=== PATIENT | female | born 1945 | race Caucasian/White ===

== ENCOUNTER 2018-03-16 08:54 | Observation (INO) ==
[2018-03-16 10:50] LABS: Baso % (Auto) 0.3 % (0.0-2.0); Eos # (Auto) 0.4 th/mm3 (0.0-0.4); Eos % (Auto) 4.9 % (0.0-4.0); Hematocrit 31.8 % (35.0-46.0); Hemoglobin 10.3 gm/dL (11.6-15.3); Lymph # (Auto) 2.6 th/mm3 (1.0-4.8); Lymph % (Auto) 31.3 % (9.0-44.0); Mean Corpuscular HGB Conc 32.3 % (32.0-36.0); Mean Corpuscular Hemoglobin 27.1 pg (27.0-34.0); Mean Corpuscular Volume 83.8 fL (80.0-100.0); Mean Platelet Volume 10.4 fL (7.0-11.0); Mono # (Auto) 0.5 th/mm3 (0.0-0.9); Mono % (Auto) 6.3 % (0.0-8.0); Neut # (Auto) 4.8 th/mm3 (1.8-7.7); Neut % (Auto) 57.2 % (16.0-70.0); Platelet Count 109 th/mm3 (150-450); Red Cell Distribution Width 15.4 % (11.6-17.2); White Blood Count 8.4 th/mm3 (4.0-11.0)
--- NOTE | 2018-03-16 11:05 | ED ---
HPI General Chief complaint: Recheck/Abnormal Lab/Rx Stated complaint: Bleeding Time Seen by Provider: 03/16/18 09:54 Source: patient Mode of arrival: ambulatory Limitations: no limitations History of Present Illness HPI narrative: This is a 73-year-old woman who on Wednesday had a heart catheterization for what sounds like an EP study followed by defibrillator placement. She has had bleeding since then, followed by a hematoma and ongoing bleeding still. She is morbidly obese. Dr. Galvan reports that they had difficulty applying pressure because of the morbid obesity. She denies any lightheadedness or dizziness. No chest pains. No trouble with her pacemaker site. Related Data Home Medications Medication Instructions Recorded Confirmed amlodipine 10 mg PO DAILY 03/11/18 03/16/18 aspirin 325 mg PO DAILY 03/11/18 03/16/18 clonidine HCl 0.2 mg PO BID 03/11/18 03/16/18 losartan 100 mg PO DAILY 03/11/18 03/16/18 metoprolol tartrate 50 mg PO BID 03/11/18 03/16/18 rosuvastatin [Crestor] 20 mg PO DAILY 03/11/18 03/16/18 torsemide 20 mg PO BID 03/11/18 03/16/18 Previous Rx's Medication Instructions Recorded levofloxacin 750 mg PO DAILY #5 tab 03/12/18 oxycodone-acetaminophen 1 tab PO Q4H PRN #20 tab 03/12/18 Allergies Allergy/AdvReac Type Severity Reaction Status Date / Time Penicillins Allergy Severe Rash Verified 03/16/18 09:11 rosuvastatin Allergy Severe Hector, Verified 03/16/18 09:11 Blister Review of Systems ROS: all other systems reviewed are negative REPLACED BY [facility] Medical History Medical History Cardiac defibrillator in place (Acute) Apnea (Chronic) Asthma (Chronic) CAD (coronary artery disease) (Chronic) CHF (congestive heart failure) (Chronic) HLD (hyperlipidemia) (Chronic) HTN (hypertension) (Chronic) Hypothyroid (Chronic) Myocardial infarction (Chronic) Endometrial cancer (Resolved) Surgical History Surgical History S/P cardiac cath (Inactive) History of mitral valve repair (Inactive) Social History Social History Substance History: No History of Abuse Second Hand Smoke Exposure: No Smoking Status: Never smoker How Often Do You Have a Drink Containing Alcohol: Never Recent Travel in [facility] within the Last 8 Weeks: No Recent Out of Country Travel within the Last 8 Weeks: No Immunization History Tetanus Immunization: Unsure Hx Influenza Vaccine This Season: No Exam Narrative Exam Narrative: GENERAL: 73-year-old woman, morbidly obese, generally well- appearing, no acute distress. SKIN: Focused skin assessment warm/dry. HEAD: Atraumatic. Normocephalic. CARDIOVASCULAR: Regular rate and rhythm. No murmur appreciated. RESPIRATORY: No accessory muscle use. Clear to auscultation. Breath sounds equal bilaterally. GASTROINTESTINAL: Abdomen soft, non-tender, nondistended. Hepatic and splenic margins not palpable. MUSCULOSKELETAL: Evaluation of the right thigh reveals dark ecchymosis in the right groin, there is palpable induration and swelling and some of the redundant tissues in the groin, as well as what appears to be expansion and fullness beyond what is symmetric compared to the other leg. Notably on the surface of the hematoma there is couple areas of superficial ulceration with there is some bruising. NEUROLOGICAL: Awake and alert. No obvious cranial nerve deficits. Motor grossly within normal limits. Normal speech. PSYCHIATRIC: Appropriate mood and affect; insight and judgment normal. Course Initial Documented Vital Signs Temperature 98.0 F 03/16/18 09:00 Pulse Rate 80 03/16/18 09:00 Respiratory Rate 19 03/16/18 09:00 Blood Pressure 172/80 H 03/16/18 09:00 Pulse Oximetry 95 03/16/18 09:00 Last Documented Vital Signs Temperature 98.0 F 03/16/18 09:00 Pulse Rate 72 03/16/18 12:00 Respiratory Rate 16 03/16/18 12:00 Blood Pressure 161/51 H 03/16/18 12:00 Pulse Oximetry 98 03/16/18 12:00 Medical Decision Making [facility] Narrative Medical decision making narrative: 73-year-old woman presents emerged department bleeding and hematoma in the right groin following heart cath. Will get ultrasound. Will check basic labs. I spoke with Dr. Ambroseed. If no pseudoaneurysm or dissection, nothing else to do. Continue apply compression, limit activity until bleeding stops. Hold aspirin. FINAL: Large hematoma with 4 point drop in hemoglobin over 45 days, will admit observation for repeat hemoglobin. No evidence of pseudoaneurysm. Medical Screen Exam Complete: Yes Emergency Medical Condition: Yes Lab Data Result diagrams: 03/16/18 10:15 03/16/18 10:15 Lab Results 03/16/18 03/16/18 03/16/18 Range/Units 10:15 10:15 10:15 WBC 8.4 (4.0-11.0) th/mm3 RBC 3.80 L (4.00-5.30) mil/mm3 Hgb 10.3 L (11.6-15.3) gm/dL Hct 31.8 L (35.0-46.0) % MCV 83.8 (80.0-100.0) fL MCH 27.1 (27.0-34.0) pg MCHC 32.3 (32.0-36.0) % RDW 15.4 (11.6-17.2) % Plt Count 109 L (150-450) th/mm3 MPV 10.4 (7.0-11.0) fL Neut % (Auto) 57.2 (16.0-70.0) % Lymph % (Auto) 31.3 (9.0-44.0) % Miller % (Auto) 6.3 (0.0-8.0) % Eos % (Auto) 4.9 H (0.0-4.0) % Baso % (Auto) 0.3 (0.0-2.0) % Neut # (Auto) 4.8 (1.8-7.7) th/mm3 Lymph # (Auto) 2.6 (1.0-4.8) th/mm3 Miller # (Auto) 0.5 (0.0-0.9) th/mm3 Eos # (Auto) 0.4 (0.0-0.4) th/mm3 Baso # (Auto) 0.0 (0.0-0.2) th/mm3 WBC Differential . Differential Comment Auto diff final PT 10.6 (9.8-11.6) sec INR 1.0 Ratio APTT 19.8 L (24.3-30.1) sec Sodium 145 (136-145) meq/L Potassium 4.2 (3.5-5.1) meq/L Chloride 108 H (98-107) meq/L Carbon Dioxide 30.2 (21.0-32.0) meq/L Anion Gap 7 (5-15) meq/L BUN 45 H (7-18) mg/dL Creatinine 1.89 H (0.50-1.00) mg/dL Estimated GFR 26 L (>89) mL/min Random Glucose 130 H (74-106) mg/dL Calcium 9.3 (8.5-10.1) mg/dL Total Bilirubin 1.1 H (0.2-1.0) mg/dL AST 22 (15-37) U/L ALT 20 (10-53) U/L Alkaline Phosphatase 77 (45-117) U/L Total Protein 6.9 (6.4-8.2) g/dL Albumin 3.4 (3.4-5.0) g/dL Imaging Data Radiologist's impression: Lower Extremity Ultrasound 03/16/18 10:14 CONCLUSION: 1. Very large right groin hematoma 2. No active flow is identified into the hematoma which would indicate the presence of a pseudoaneurysm. Discharge Plan Discharge Disposition Patient Disposition: 30 Still Patient Physicians Team ED Provider: Ozzie Cm Attending Provider: Danny Foy Other Providers: Leida Smith Discharge Interventions Interventions: Vital Signs Last Done: 03/16/18 12:00 Status ED Status: Admitted Observation Patient
[2018-03-16 11:07] LABS: Activated Partial Thrombo Time 19.8 sec (24.3-30.1); Prothrombin Time 10.6 sec (9.8-11.6)
[2018-03-16 11:11] LABS: Albumin 3.4 g/dL (3.4-5.0); Anion Gap 7 meq/L (5-15); Aspartate Aminotransferase 22 U/L (15-37); Blood Urea Nitrogen 45 mg/dL (7-18); Calcium 9.3 mg/dL (8.5-10.1); Carbon Dioxide 30.2 meq/L (21.0-32.0); Chloride 108 meq/L (98-107); Glomerular Filtration Rate 26 mL/min (>89); Glucose,Random 130 mg/dL (74-106); Potassium 4.2 meq/L (3.5-5.1); Sodium 145 meq/L (136-145)
[2018-03-16 11:13] LABS: Alanine Aminotransferase 20 U/L (10-53); Alkaline Phosphatase 77 U/L (45-117); Total Protein 6.9 g/dL (6.4-8.2)
--- NOTE | 2018-03-16 11:32 | ECG ---
Date Performed: 03/16/2018 Time Performed: 09:13:58 PTAGE: 73 years EKG: Sinus rhythm NORMAL ECG NO PREVIOUS TRACING DOCTOR: Ozzie Mckeon Interpretating Date/Time 03/16/2018 11:31:45
--- NOTE | 2018-03-16 11:55 | US ---
EXAM DATE: 03/16/2018 11:41 AM EDT AGE/SEX: 73 years / Female INDICATIONS: Right groin swelling. CLINICAL DATA: This is the patient's initial encounter. Patient reports that signs and symptoms have been present for 4 - 6 days and indicates a pain score of 5/10. MEDICAL/SURGICAL HISTORY: Congestive heart failure. Hypertension. Hypothyroidism. Asthma. CA D. Endometrial cancer. NC. Hyperlipidemia. . Cardiac catheterization 03/11/18. Mitral valve repair. COMPARISON: No prior exams available for comparison. TECHNIQUE: Sparks-scale and color Doppler imaging of the inguinal region was performed. FINDINGS: Vascular: A large heterogeneous fluid collection measuring 11.9 x 3.6 cm in size is identified in th e right groin. Doppler fails to reveal any active flow within this collection. Other: Significant soft tissue edema is noted. CONCLUSION: 1. Very large right groin hematoma 2. No active flow is identified into the hematoma which would indicate the presence of a pseudoaneur ysm. Electronically signed by: Vijay Norton MD 03/16/2018 11:54 AM EDT
[2018-03-16] MEDS ORDERED: Bisacodyl 10 MG Supp RECTAL PRN (12:30)
[2018-03-16] MEDS ORDERED: Acetaminophen 325 MG Tablet PO PRN (12:30)
--- NOTE | 2018-03-16 16:35 | P.HP ---
History of Present Illness Primary Care Physician: Tasha Wood Chief Complaint: Hematoma right inguinal area History of Present Illness: This is a 73-year-old female with a history of CAD status post CABG, congestive heart failure, hyperlipidemia, hypertension, hypothyroidism, chronic kidney disease stage III, asthma and sleep apnea not on CPAP. She presents to the emergency department because of right inguinal bleeding. Last Wednesday she underwent EPS which showed ventricular tachyarrhythmia and had defibrillator placement. At that time she had right inguinal bleeding followed by hematoma which was controlled when she was discharged the day after. Patient states that when she woke up the following day, she noted bleeding and started pressure dressing changes at least twice a day every time she uses the bathroom. Denies chest pain, palpitations, shortness of breath, lightheadedness , and diaphoresis. Ultrasound shows a large hematoma without pseudoaneurysm. All other systems reviewed negative. Review of Systems All other systems reviewed negative except as stated in HPI PMFSH - History History Provided By: Patient - Medical History Medical History: Medical History (Last Reviewed 03/16/18 @ 16:30 by Danny Foy MD) Cardiac defibrillator in place Apnea Asthma CAD (coronary artery disease) CHF (congestive heart failure) HLD (hyperlipidemia) HTN (hypertension) Hypothyroid Myocardial infarction Endometrial cancer - Surgical History Surgical History: Surgical History (Last Reviewed 03/16/18 @ 16:30 by Danny Foy MD) S/P cardiac cath History of mitral valve repair - Family History Family History: Family History (Last Updated 03/16/18 @ 16:30 by Danny Foy MD) Other Family history of acute myocardial infarction - Tobacco History Second Hand Smoke Exposure: No Tobacco Use In Past 30 Days: No Smoking Status: Never smoker - Alcohol History How Often Do You Have a Drink Containing Alcohol: Never - Substance Use History Substance History: No History of Abuse - Travel History Recent Travel in the [place] Within the Last 8 Weeks: No Recent Travel Out of the Country Within the Last 8 Weeks: No - Immunization History Tetanus Immunization: Unsure Hx Influenza Vaccine This Season: No Medications and Allergies Active Medications: Active Medications Acetaminophen (Tylenol) 650 mg PO Q4H PRN PRN Reason: Temp > 100.4 Atorvastatin Calcium (Lipitor) 40 mg PO DAILY EMILY Bisacodyl (Dulcolax Supp) 10 mg RECTAL DAILY PRN PRN Reason: SEVERE CONSITIPATION Clonidine HCl (Catapres) 0.2 mg PO BID [facility] Lactulose (Lactulose Liq) 30 ml PO DAILY PRN PRN Reason: SEVERE CONSITIPATION Levofloxacin (Levaquin) 750 mg PO Q48H [facility] Stop: 03/18/18 01:00 Metoprolol Tartrate (Lopressor) 50 mg PO BID [facility] Ondansetron HCl (Zofran Inj) 4 mg IV.PUSH Q6H PRN PRN Reason: NAUSEA OR VOMITING Oxycodone/Acetaminophen (Percocet 5/325 Mg) 1 tab PO Q4H PRN PRN Reason: Pain scale 5-10 Senna/Docusate Sodium (Yuly-Colace) 1 tab PO BID [facility] Sennosides (Senokot) 17.2 mg PO Q12H PRN PRN Reason: Moderate Constipation Sodium Chloride (Ns Flush) 2 ml IV.FLUSH UNSCH PRN PRN Reason: FLUSH AFTER USING IV ACCESS Allergies Allergy/AdvReac Type Severity Reaction Status Date / Time Penicillins Allergy Severe Rash Verified 03/16/18 09:11 Home Medications Medication Instructions Recorded Confirmed Type amlodipine 10 mg PO DAILY 03/11/18 03/16/18 History aspirin 325 mg PO DAILY 03/11/18 03/16/18 History clonidine HCl 0.2 mg PO BID 03/11/18 03/16/18 History losartan 100 mg PO DAILY 03/11/18 03/16/18 History metoprolol tartrate 50 mg PO BID 03/11/18 03/16/18 History rosuvastatin [Crestor] 20 mg PO DAILY 03/11/18 03/16/18 History torsemide 20 mg PO BID 03/11/18 03/16/18 History Exam Vital signs: Vital Signs 03/16/18 09:00 03/16/18 10:27 03/16/18 12:00 Temperature 98.0 F Pulse Rate 80 71 72 Respiratory Rate 19 16 16 Blood Pressure 172/80 H 126/59 L 161/51 H Pulse Oximetry 95 100 98 Intake & Output 03/15/18 03/16/18 03/16/18 18:59 06:59 18:59 Weight 142.428 kg Narrative: GENERAL: Well-developed, obese in no distress SKIN: Warm and dry. HEAD: Atraumatic. Normocephalic. EYES: Pupils equal and round. No scleral icterus. No injection or drainage. ENT: No nasal bleeding or discharge. Mucous membranes pink and moist. NECK: Trachea midline. No JVD. CARDIOVASCULAR: Regular rate and rhythm. Pacemaker site without evidence of infection RESPIRATORY: No accessory muscle use. Clear to auscultation. Breath sounds equal bilaterally. GASTROINTESTINAL: Abdomen soft, non-tender, nondistended. MUSCULOSKELETAL: Extremities without clubbing, cyanosis, or edema. No obvious deformities. Right inguinal and proximal thigh with dark ecchymosis with induration and swelling consistent with hematoma with 2 areas of superficial ulceration NEUROLOGICAL: Awake and alert. No obvious cranial nerve deficits. Motor grossly within normal limits. Five out of 5 muscle strength in the arms and legs. Normal speech. PSYCHIATRIC: Appropriate mood and affect; insight and judgment normal. Results - Labs CBC & Chem 7: 03/16/18 10:15 03/16/18 10:15 Labs: Laboratory Results - last 24 hr 03/16/18 03/16/18 03/16/18 10:15 10:15 10:15 WBC 8.4 RBC 3.80 L Hgb 10.3 L Hct 31.8 L MCV 83.8 MCH 27.1 MCHC 32.3 RDW 15.4 Plt Count 109 L MPV 10.4 Neut % (Auto) 57.2 Lymph % (Auto) 31.3 [place] % (Auto) 6.3 Eos % (Auto) 4.9 H Baso % (Auto) 0.3 Neut # (Auto) 4.8 Lymph # (Auto) 2.6 [place] # (Auto) 0.5 Eos # (Auto) 0.4 Baso # (Auto) 0.0 WBC Differential . Differential Comment Auto diff final PT 10.6 INR 1.0 APTT 19.8 L Sodium 145 Potassium 4.2 Chloride 108 H Carbon Dioxide 30.2 Anion Gap 7 BUN 45 H Creatinine 1.89 H Estimated GFR 26 L Random Glucose 130 H Calcium 9.3 Total Bilirubin 1.1 H AST 22 ALT 20 Alkaline Phosphatase 77 Total Protein 6.9 Albumin 3.4 - Imaging Impressions Lower Extremity Ultrasound 03/16/18 10:14 CONCLUSION: 1. Very large right groin hematoma 2. No active flow is identified into the hematoma which would indicate the presence of a pseudoaneurysm. Caprini VTE Risk Assessment Caprini VTE Risk Assessment: Moderate/High Risk (score >= 2) Caprini Risk Assessment Model: Point Value = 1 Point Value = 2 Point Value = 3 Point Value = 5 Age 41-60 Minor surgery BMI > 25 kg/m2 Swollen legs Varicose veins or History of unexplained or recurrent spontaneous Oral contraceptives or hormone replacement Sepsis (< 1 month) Serious lung disease, including pneumonia (< 1 month) Abnormal pulmonary function Acute myocardial infarction Congestive heart failure (< 1 month) History of inflammatory bowel disease Medical patient at bed rest Age 61-74 Arthroscopic surgery Major open surgery (> 45 min) Laparoscopic surgery (> 45 min) Malignancy Confined to bed (> 72 hours) Immobilizing plaster cast Central venous access Age >= 75 History of VTE Family history of VTE Factor V Leiden Prothrombin [id number] Lupus anticoagulant Anticardiolipin antibodies Elevated serum homocysteine Heparin-induced thrombocytopenia Other congenital or acquired thrombophilia Stroke (< 1 month) Elective arthroplasty Hip, pelvis, or leg fracture Acute spinal cord injury (< 1 month) Prophylaxis Regimen: Total Risk Factor Score Risk Level Prophylaxis Regimen 0-1 Low Early ambulation 2 Moderate Order ONE of the following: *Sequential Compression Device (SCD) *Heparin 5000 units SQ BID 3-4 Higher Order ONE of the following medications: *Heparin 5000 units SQ TID *Enoxaparin/Lovenox 40 mg SQ daily (WT < 150 kg, CrCl > 30 mL/min) *Enoxaparin/Lovenox 30 mg SQ daily (WT < 150 kg, CrCl > 10-29 mL/min) *Enoxaparin/Lovenox 30 mg SQ BID (WT < 150 kg, CrCl > 30 mL/min) AND/OR *Sequential Compression Device (SCD) 5 or more Highest Order ONE of the following medications: *Heparin 5000 units SQ TID (Preferred with Epidurals) *Enoxaparin/Lovenox 40 mg SQ daily (WT < 150 kg, CrCl > 30 mL/min) *Enoxaparin/Lovenox 30 mg SQ daily (WT < 150 kg, CrCl > 10-29 mL/min) *Enoxaparin/Lovenox 30 mg SQ BID (WT < 150 kg, CrCl > 30 mL/min) AND *Sequential Compression Device (SCD) Assessment and Plan - Plan This is a 73-year-old female with a history of CAD status post CABG, congestive heart failure, hyperlipidemia, hypertension, hypothyroidism, chronic kidney disease stage III, asthma and sleep apnea not on CPAP. She presents to the emergency department because of right inguinal bleeding status post cardiac catheterization. Ultrasound shows a large hematoma without pseudoaneurysm. Large right inguinal hematoma status post cardiac catheterization. Will continue to monitor for expansion. Wound care, pain management and avoid antiplatelet/anticoagulation. Wound care nurse consultation counseled regarding narcotics Anemia secondary to acute blood loss. Hemodynamically stable at this time. Will continue BP medications Lopressor and clonidine will hold losartan and torsemide for now. DVT prophylaxis with SCD and early ambulation Discharge Planning: [facility]
[2018-03-16] MEDS: Senna/Docusate Sodium 8.6/50 MG Tablet PO SCH (20:07)
[2018-03-16] MEDS: Metoprolol Tartrate 50 MG Tablet PO SCH (20:07)
[2018-03-17 07:07] LABS: Baso % (Auto) 0.6 % (0.0-2.0); Eos # (Auto) 0.2 th/mm3 (0.0-0.4); Hematocrit 30.7 % (35.0-46.0); Hemoglobin 10.1 gm/dL (11.6-15.3); Lymph # (Auto) 2.2 th/mm3 (1.0-4.8); Lymph % (Auto) 29.4 % (9.0-44.0); Mean Corpuscular HGB Conc 32.9 % (32.0-36.0); Mean Corpuscular Hemoglobin 27.5 pg (27.0-34.0); Mean Corpuscular Volume 83.7 fL (80.0-100.0); Mean Platelet Volume 10.7 fL (7.0-11.0); Mono # (Auto) 0.6 th/mm3 (0.0-0.9); Mono % (Auto) 7.4 % (0.0-8.0); Neut # (Auto) 4.5 th/mm3 (1.8-7.7); Neut % (Auto) 59.6 % (16.0-70.0); Platelet Count 108 th/mm3 (150-450); Red Blood Count 3.67 mil/mm3 (4.00-5.30); Red Cell Distribution Width 15.8 % (11.6-17.2); White Blood Count 7.6 th/mm3 (4.0-11.0)
[2018-03-17 07:20] LABS: Carbon Dioxide 26.3 meq/L (21.0-32.0); Potassium 4.4 meq/L (3.5-5.1)
[2018-03-17] MEDS ORDERED: levoFLOXacin 750 MG Tablet PO SCH (09:00)
[2018-03-17] MEDS: Metoprolol Tartrate 50 MG Tablet PO SCH ×2 (09:27→20:50)
[2018-03-17] MEDS: Senna/Docusate Sodium 8.6/50 MG Tablet PO SCH ×2 (09:27→20:52)
--- NOTE | 2018-03-17 15:09 | P.PNWCN ---
Wound Care Nurse Consult Description: Wound consult ordered by for wound management. Communicated with: Svetlana NAVA, Recommendation: 1. Cleanse Right inguinal/groin with normal saline / Remedy soft cloth barrier wipes 2. Apply Xeroform cut to fit wound base to open unroofed [place], cover with ABD no adhesive. 3. Change daily or as needed for exudate 4. Coil Cleaner will follow up after patient seen by mat roller . Additional information: patient seen today by Svetlana feldman RN and .Patient alert in bed in no acute distress.Hematoma to right inguinal/groin area dark purple firm to touch.@ roofed bullas noted as well as 2 dry unroofed bulla.Patient waiting on mat roller for final decisions.Hematoma cleansed with normal saline no exudate noted.Left open to air. Wound/Pressure Injury - Patient Status Premedicated for Pain Prior to Dressing Change: No - Wound Right Groin Wound Assessment: Ongoing Wound Type: Puncture Is This a Chronic Wound: No Requested from Provider a Wound Care Consult: No (Mariola NAVA,[facility] seen 03/17) Wound Bed Appearance: Blisters - Intact, Red Surrounding Tissue Appearance: Edematous, Erythema Surrounding Tissue Temperature: Hot Drainage Description: Sanguinous Drainage Amount: Scant Drainage Odor: No Odor Dressing Status: Open to Air Cleansing Solution: Saline Primary Dressing: xeroform Cover Dressing: Absorbant Pad Incision - Patient Status Premedicated for Pain Prior to Dressing Change: No
[2018-03-17] MEDS: amLODIPine 10 MG Tablet PO SCH (17:42)
--- NOTE | 2018-03-17 17:42 | P.CONVS ---
History of Present Illness Service: Vascular Surgery Consult date: 03/17/18 Requesting Physician: Leida Smith Reason for Consult: Groin hematoma Primary Care Provider: Tasha Wood Chief Complaint: Hematoma right inguinal area History of Present Illness: 73 yo s/p catheter procedure last Wed, adm with groin hematoma. No leg complaints. No back pain. Hct stable. Review of Systems Constitutional: Denies chills Cardiovascular: Denies chest pain PMFSH - History History Provided By: Patient - Medical History Medical History: Medical History (Last Reviewed 03/17/18 @ 17:40 by Carlos Hatch MD) Cardiac defibrillator in place Apnea Asthma CAD (coronary artery disease) CHF (congestive heart failure) HLD (hyperlipidemia) HTN (hypertension) Hypothyroid Myocardial infarction Endometrial cancer - Surgical History Surgical History: Surgical History (Last Reviewed 03/17/18 @ 17:40 by Carlos Hatch MD) S/P cardiac cath History of mitral valve repair - Family History Family History: Family History (Last Updated 03/16/18 @ 16:30 by Danny Foy MD) Other Family history of acute myocardial infarction - Tobacco History Second Hand Smoke Exposure: No Tobacco Use In Past 30 Days: No Smoking Status: Never smoker - Alcohol History How Often Do You Have a Drink Containing Alcohol: Never - Substance Use History Substance History: No History of Abuse - Travel History Recent Travel in the [place] Within the Last 8 Weeks: No Recent Travel Out of the Country Within the Last 8 Weeks: No - Immunization History Tetanus Immunization: Unsure Hx Influenza Vaccine This Season: No Medications and Allergies Active Medications: Active Medications Acetaminophen (Tylenol) 650 mg PO Q4H PRN PRN Reason: Temp > 100.4 Amlodipine Besylate (Norvasc) 10 mg PO DAILY [facility] Atorvastatin Calcium (Lipitor) 40 mg PO DAILY [facility] Last Admin: 03/17/18 09:26 Dose: 40 mg Bisacodyl (Dulcolax Supp) 10 mg RECTAL DAILY PRN PRN Reason: SEVERE CONSITIPATION Clonidine HCl (Catapres) 0.2 mg PO BID [facility] Last Admin: 03/17/18 09:27 Dose: 0.2 mg Lactulose (Lactulose Liq) 30 ml PO DAILY PRN PRN Reason: SEVERE CONSITIPATION Last Admin: 03/16/18 23:04 Dose: 30 ml Levofloxacin (Levaquin) 750 mg PO Q48H [facility] Stop: 03/18/18 01:00 Last Admin: 03/17/18 09:27 Dose: 750 mg Losartan Potassium (Cozaar) 100 mg PO DAILY [facility] Metoprolol Tartrate (Lopressor) 50 mg PO BID [facility] Last Admin: 03/17/18 09:27 Dose: 50 mg Ondansetron HCl (Zofran Inj) 4 mg IV.PUSH Q6H PRN PRN Reason: NAUSEA OR VOMITING Oxycodone/Acetaminophen (Percocet 5/325 Mg) 1 tab PO Q4H PRN PRN Reason: Pain scale 5-10 Senna/Docusate Sodium (Yuly-Colace) 1 tab PO BID [facility] Last Admin: 03/17/18 09:27 Dose: Not Given Sennosides (Senokot) 17.2 mg PO Q12H PRN PRN Reason: Moderate Constipation Sodium Chloride (Ns Flush) 2 ml IV.FLUSH UNSCH PRN PRN Reason: FLUSH AFTER USING IV ACCESS Torsemide (Demadex) 20 mg PO BID [facility] Allergies Allergy/AdvReac Type Severity Reaction Status Date / Time Penicillins Allergy Severe Rash Verified 03/16/18 09:11 Home Medications Medication Instructions Recorded Confirmed Type amlodipine 10 mg PO DAILY 03/11/18 03/16/18 History aspirin 325 mg PO DAILY 03/11/18 03/16/18 History clonidine HCl 0.2 mg PO BID 03/11/18 03/16/18 History losartan 100 mg PO DAILY 03/11/18 03/16/18 History metoprolol tartrate 50 mg PO BID 03/11/18 03/16/18 History rosuvastatin [Crestor] 20 mg PO DAILY 03/11/18 03/16/18 History torsemide 20 mg PO BID 03/11/18 03/16/18 History Physical Exam Vital Signs / I&O: Vital Signs 03/16/18 18:00 03/16/18 19:00 03/16/18 20:00 Temperature 98.3 F Pulse Rate 83 77 76 Respiratory Rate 20 Blood Pressure 193/94 H Pulse Oximetry 96 03/16/18 21:00 03/16/18 22:00 03/16/18 23:00 Temperature 98.5 F Pulse Rate 78 66 58 L Respiratory Rate 20 Blood Pressure 164/72 H Pulse Oximetry 97 03/17/18 00:00 03/17/18 01:00 03/17/18 02:00 Temperature Pulse Rate 60 60 80 Respiratory Rate 20 Blood Pressure Pulse Oximetry 03/17/18 03:00 03/17/18 04:00 03/17/18 05:00 Temperature 98.1 F Pulse Rate 67 69 69 Respiratory Rate 20 Blood Pressure 157/92 H Pulse Oximetry 96 03/17/18 06:00 03/17/18 07:00 03/17/18 11:00 Temperature 98.2 F 98.2 F Pulse Rate 69 77 77 Respiratory Rate 16 16 Blood Pressure 161/74 H 161/74 H Pulse Oximetry 97 97 03/17/18 15:00 Temperature Pulse Rate Respiratory Rate 16 Blood Pressure Pulse Oximetry Intake & Output 03/16/18 03/17/18 03/17/18 18:59 06:59 18:59 Intake Total 240 / 240 960 / 960 Output Total 280 / 280 Balance 240 / 240 680 / 680 Weight 142.428 kg 140.6 kg Intake: Oral 240 / 240 960 / 960 Output: Urine 280 / 280 Other: # Voids 2 2 Date of Last Bowel Movement 03/17/18 03/17/18 # Bowel Movements 3 Neuro: [place], resting without distress HEENT: NC/AT Neck: no JVD Lungs: nonlabored Vascular: R groin ecchymosis but no skin threat B feet warm, equal perfusion clinically Laboratory Results - last 24 hr 03/17/18 03/17/18 05:26 05:26 WBC 7.6 RBC 3.67 L Hgb 10.1 L Hct 30.7 L MCV 83.7 MCH 27.5 MCHC 32.9 RDW 15.8 Plt Count 108 L MPV 10.7 Neut % (Auto) 59.6 Lymph % (Auto) 29.4 [place] % (Auto) 7.4 Eos % (Auto) 3.0 Baso % (Auto) 0.6 Neut # (Auto) 4.5 Lymph # (Auto) 2.2 [place] # (Auto) 0.6 Eos # (Auto) 0.2 Baso # (Auto) 0.0 WBC Differential . Differential Comment Auto diff final Sodium 146 H Potassium 4.4 Chloride 111 H Carbon Dioxide 26.3 Anion Gap 9 BUN 28 H Creatinine 1.48 H Estimated GFR 34 L Random Glucose 130 H Calcium 9.0 Impressions Lower Extremity Ultrasound 03/16/18 10:14 CONCLUSION: 1. Very large right groin hematoma 2. No active flow is identified into the hematoma which would indicate the presence of a pseudoaneurysm. Assessment and Plan - Assessment (1) Hematoma of groin Code(s): S30.1XXA - Contusion of abdominal wall, initial encounter Status: Acute - Plan Reviewed duplex - groin hematoma and clinically, impressive ecchymosis but no distal malperfusion, no change in HCT and no skin threat. Needs observation only. Doubt any intervention required. Discussed with patient and family at bedside.
--- NOTE | 2018-03-17 18:19 | MB ---
cc: Leida Smith MD, Shahabuddin DO DATE: 03/17/2018 REASON FOR CONSULTATION: Right inguinal hematoma. HISTORY OF PRESENT ILLNESS: Ms. Dominguez is 73-year-old female with a history of congestive heart failure, cardiomyopathy, hyperlipidemia, hypothyroidism, morbid obesity, status post electrophysiology study around 2 weeks ago. The patient is back in the hospital with a hematoma in the right femoral artery. A vascular ultrasound was performed that indicated no pseudoaneurysm, only hematoma. The patient was admitted. I was consulted for evaluation. The chart was reviewed. The patient was evaluated. ALLERGIES: PENICILLIN. SOCIAL HISTORY: Negative for smoking or drinking. FAMILY HISTORY: Noncontributory to her current medical condition. MEDICATIONS: She is on: 1. Lipitor 40 mg a day. 2. Tylenol. 3. Catapres 0.2 mg twice a day. 4. Lactulose. 5. Levaquin 750 mg q.48 hours. 6. Lopressor 50 mg twice a day. 7. Percocet p.r.n. REVIEW OF SYSTEMS: Currently, the patient refers no chest pain, no chest discomfort, no shortness of breath, no leg pain, no fever. PHYSICAL EXAMINATION: GENERAL: Alert, fully oriented, in bed. VITAL SIGNS: Blood pressure 116/74, pulse 77, respiratory rate 18. LUNGS: Ventilated. CARDIOVASCULAR: S1, S2. Regular. ABDOMEN: Obese. No mass. EXTREMITIES: No edema. The right inguinal area with some hematoma. There is some redness in the area. LABORATORY DATA: Hemoglobin 10.1, white blood cells 7.6. INR 1.0. Potassium 4.4, creatinine 1.48, coming down from 1.89. ASSESSMENT AND RECOMMENDATIONS: Ms. Dominguez currently is stable. There is no pseudoaneurysm, but because of the size of the patient's leg and the patient's severe morbid obesity (the patient is over 300 pounds), I would like an evaluation by our vascular surgery. Dr. Hatch will be consulted. Case discussed with the patient. Also, blood pressure is high. Medications are going to be reevaluated. Her home medications are going to be reinitiated. Losartan will be given. If necessary, beta apollo will be increased in the morning. MD Adore Veronica , 04:33 PM , 04:41 PM
[2018-03-17] MEDS: Torsemide 20 MG Tablet PO SCH (20:50)
--- NOTE | 2018-03-18 00:57 | P.PN ---
Subjective Interval history: Late entry for 03/17/2018 Patient was seen earlier on 03/17/2018. Follow up for right groin hematoma. Patient is currently doing well. No chest pain, SOB, fever, chills. No dizziness or lightheadedness. Physical Exam Vital signs: Vital Signs 03/17/18 01:00 03/17/18 02:00 03/17/18 03:00 Temperature 98.1 F Pulse Rate 60 80 67 Respiratory Rate 20 Blood Pressure 157/92 H Pulse Oximetry 96 03/17/18 04:00 03/17/18 05:00 03/17/18 06:00 Temperature Pulse Rate 69 69 69 Respiratory Rate Blood Pressure Pulse Oximetry 03/17/18 07:00 03/17/18 08:00 03/17/18 09:00 Temperature 98.2 F Pulse Rate 70 80 82 Respiratory Rate 16 Blood Pressure 161/74 H Pulse Oximetry 97 03/17/18 10:00 03/17/18 11:00 03/17/18 12:00 Temperature 98.2 F Pulse Rate 68 64 60 Respiratory Rate 16 Blood Pressure 161/74 H Pulse Oximetry 97 03/17/18 13:00 03/17/18 14:00 03/17/18 15:00 Temperature 98.5 F Pulse Rate 80 82 75 Respiratory Rate 16 Blood Pressure 134/63 Pulse Oximetry 98 03/17/18 16:00 03/17/18 17:00 03/17/18 18:00 Temperature Pulse Rate 64 66 74 Respiratory Rate Blood Pressure Pulse Oximetry 03/17/18 19:00 03/17/18 20:00 03/17/18 21:00 Temperature 98.3 F Pulse Rate 71 76 70 Respiratory Rate 20 Blood Pressure 143/66 H Pulse Oximetry 95 03/17/18 22:00 03/17/18 23:00 03/18/18 00:00 Temperature 97.7 F Pulse Rate 70 71 62 Respiratory Rate 20 Blood Pressure 154/90 H Pulse Oximetry 94 L Intake & Output 03/17/18 03/17/18 03/18/18 06:59 18:59 06:59 Intake Total 960 / 960 840 / 840 Output Total 280 / 280 Balance 680 / 680 840 / 840 Weight 140.6 kg Intake: Oral 960 / 960 840 / 840 Output: Urine 280 / 280 Other: # Voids 2 2 Date of Last Bowel Movement 03/17/18 03/17/18 03/17/18 # Bowel Movements 3 1 Narrative: GENERAL: AOX3, NAD. Morbidly obese. SKIN: Warm and dry. A large right sided groin hematoma present. HEAD: Normocephalic. EYES: No scleral icterus. No injection or drainage. NECK: Supple, trachea midline. No JVD or lymphadenopathy. CARDIOVASCULAR: Regular rate and rhythm without murmurs, gallops, or rubs. RESPIRATORY: Breath sounds equal bilaterally. No accessory muscle use. GASTROINTESTINAL: Abdomen soft, non-tender, nondistended. MUSCULOSKELETAL: No cyanosis, or edema. BACK: Nontender without obvious deformity. No CVA tenderness. Results - Labs CBC & Chem 7: 03/17/18 05:26 03/17/18 05:26 Laboratory Results - last 24 hr 03/17/18 03/17/18 05:26 05:26 WBC 7.6 RBC 3.67 L Hgb 10.1 L Hct 30.7 L MCV 83.7 MCH 27.5 MCHC 32.9 RDW 15.8 Plt Count 108 L MPV 10.7 Neut % (Auto) 59.6 Lymph % (Auto) 29.4 [place] % (Auto) 7.4 Eos % (Auto) 3.0 Baso % (Auto) 0.6 Neut # (Auto) 4.5 Lymph # (Auto) 2.2 [place] # (Auto) 0.6 Eos # (Auto) 0.2 Baso # (Auto) 0.0 WBC Differential . Differential Comment Auto diff final Sodium 146 H Potassium 4.4 Chloride 111 H Carbon Dioxide 26.3 Anion Gap 9 BUN 28 H Creatinine 1.48 H Estimated GFR 34 L Random Glucose 130 H Calcium 9.0 Assessment and Plan - Plan This is a 73-year-old female with a history of CAD status post CABG, congestive heart failure, hyperlipidemia, hypertension, hypothyroidism, chronic kidney disease stage III, asthma and sleep apnea not on CPAP. She presents to the emergency department because of right inguinal bleeding status post cardiac catheterization. Ultrasound shows a large hematoma without pseudoaneurysm. Large right sided inguinal hematoma - patient is s/p catheterization for EP study two weeks ago - No acute hemodynamic compromise - Reviewed Vascular surgery input. Observation only recommended at this point. - If patient remains asymptomatic and hemodynamically stable, we will consider discharging patient on 03/18/2018. Morbid obesity - likely contributor to the complication of hematoma. Full code.
--- NOTE | 2018-03-18 07:58 | P.PNCA ---
Subjective Interval history: Complained that she was awake all night after being given a diuretic at 10: 30 PM. Wants to go home. Physical Exam Vital signs: Vital Signs 03/17/18 08:00 03/17/18 09:00 03/17/18 10:00 Temperature Pulse Rate 80 82 68 Respiratory Rate Blood Pressure Pulse Oximetry 03/17/18 11:00 03/17/18 12:00 03/17/18 13:00 Temperature 98.2 F Pulse Rate 64 60 80 Respiratory Rate 16 Blood Pressure 161/74 H Pulse Oximetry 97 03/17/18 14:00 03/17/18 15:00 03/17/18 16:00 Temperature 98.5 F Pulse Rate 82 75 64 Respiratory Rate 16 Blood Pressure 134/63 Pulse Oximetry 98 03/17/18 17:00 03/17/18 18:00 03/17/18 19:00 Temperature 98.3 F Pulse Rate 66 74 71 Respiratory Rate 20 Blood Pressure 143/66 H Pulse Oximetry 95 03/17/18 20:00 03/17/18 21:00 03/17/18 22:00 Temperature Pulse Rate 76 70 70 Respiratory Rate Blood Pressure Pulse Oximetry 03/17/18 23:00 03/18/18 00:00 03/18/18 01:00 Temperature 97.7 F Pulse Rate 71 62 66 Respiratory Rate 20 Blood Pressure 154/90 H Pulse Oximetry 94 L 03/18/18 02:00 03/18/18 03:00 03/18/18 04:00 Temperature 98.8 F Pulse Rate 62 67 67 Respiratory Rate 20 Blood Pressure 157/76 H Pulse Oximetry 94 L 03/18/18 05:00 03/18/18 06:00 Temperature Pulse Rate 62 71 Respiratory Rate Blood Pressure Pulse Oximetry Intake & Output 03/17/18 03/18/18 03/18/18 18:59 06:59 18:59 Intake Total 840 / 840 480 / 480 Output Total 900 / 900 Balance 840 / 840 -420 / -420 Weight 309 lb 11.991 oz Intake: Oral 840 / 840 480 / 480 Output: Urine 900 / 900 Other: # Voids 2 2 Date of Last Bowel Movement 03/17/18 03/17/18 # Bowel Movements 1 Narrative: GENERAL: Well-developed, morbidly obese female lying in bed in no acute distress. SKIN: Warm and dry. HEAD: Atraumatic. Normocephalic. EYES: Pupils equal and round. No scleral icterus. No injection or drainage. ENT: No nasal bleeding or discharge. Mucous membranes pink and moist. NECK: Trachea midline. No JVD. CARDIOVASCULAR: Regular rate and rhythm. Palpable pulses. RESPIRATORY: No accessory muscle use. Clear to auscultation. Breath sounds equal bilaterally. GASTROINTESTINAL: Abdomen soft, non-tender, nondistended. Hepatic and splenic margins not palpable. MUSCULOSKELETAL: Extremities without clubbing, cyanosis, or edema. No obvious deformities. Massive right groin hematoma with extensive ecchymosis. NEUROLOGICAL: Awake and alert. No obvious cranial nerve deficits. Motor grossly within normal limits. Normal speech. PSYCHIATRIC: Appropriate mood and affect; insight and judgment normal. Assessment and Plan - Assessment (1) Hematoma of groin Code(s): S30.1XXA - Contusion of abdominal wall, initial encounter Status: Acute Plan: She has been cleared by vascular surgery, who recommends observation at this time with no surgical intervention. No pseudoaneurysm was found. Continue current therapy per my discussion with Dr. Smith.
[2018-03-18] MEDS: amLODIPine 10 MG Tablet PO SCH (08:31)
[2018-03-18] MEDS: Senna/Docusate Sodium 8.6/50 MG Tablet PO SCH (08:31)
[2018-03-18] MEDS: Metoprolol Tartrate 50 MG Tablet PO SCH (08:31)
[2018-03-18] MEDS: Torsemide 20 MG Tablet PO SCH (08:31)
[2018-03-18 09:18] VITALS: BP 120/64; RESP 18; TEMP 98; O2SAT 97
[2018-03-18 09:23] VITALS: PULSE 77
--- NOTE | 2018-03-18 10:02 | P.DS ---
Date of admission: 03/16/18 12:32 Primary care physician: Tasha Wood Brief History from admission: This is a 73-year-old female with a history of CAD status post CABG, congestive heart failure, hyperlipidemia, hypertension, hypothyroidism, chronic kidney disease stage III, asthma and sleep apnea not on CPAP. She presents to the emergency department because of right inguinal bleeding. Last Wednesday she underwent EPS which showed ventricular tachyarrhythmia and had defibrillator placement. At that time she had right inguinal bleeding followed by hematoma which was controlled when she was discharged the day after. Patient states that when she woke up the following day, she noted bleeding and started pressure dressing changes at least twice a day every time she uses the bathroom. Denies chest pain, palpitations, shortness of breath, lightheadedness , and diaphoresis. Ultrasound shows a large hematoma without pseudoaneurysm. All other systems reviewed negative. DS: Medications - Discharge Medications Prescriptions: aspirin [Aspirin Low Dose] 81 mg PO DAILY #90 tab DS: Summary Hospital Course: This is a 73-year-old female with a history of CAD status post CABG, congestive heart failure, hyperlipidemia, hypertension, hypothyroidism, chronic kidney disease stage III, asthma and sleep apnea not on CPAP. She presents to the emergency department because of right inguinal bleeding status post cardiac catheterization. Ultrasound shows a large hematoma without pseudoaneurysm. Large right sided inguinal hematoma - patient is s/p catheterization for EP study two weeks ago - No acute hemodynamic compromise - Reviewed Vascular surgery input. Observation only recommended at this point. -Vascular surgery cleared for discharge. Morbid obesity - likely contributor to the complication of hematoma. We will discharge patient home with outpatient follow-up with Dr. Smith. - Time Spent with Patient Total time spent providing and/or coordinating discharge services: Less than 30 minutes Exam Vital signs: Vital Signs 03/17/18 11:00 03/17/18 12:00 03/17/18 13:00 Temperature 98.2 F Pulse Rate 64 60 80 Respiratory Rate 16 Blood Pressure 161/74 H Pulse Oximetry 97 03/17/18 14:00 03/17/18 15:00 03/17/18 16:00 Temperature 98.5 F Pulse Rate 82 75 64 Respiratory Rate 16 Blood Pressure 134/63 Pulse Oximetry 98 03/17/18 17:00 03/17/18 18:00 03/17/18 19:00 Temperature 98.3 F Pulse Rate 66 74 71 Respiratory Rate 20 Blood Pressure 143/66 H Pulse Oximetry 95 03/17/18 20:00 03/17/18 21:00 03/17/18 22:00 Temperature Pulse Rate 76 70 70 Respiratory Rate Blood Pressure Pulse Oximetry 03/17/18 23:00 03/18/18 00:00 03/18/18 01:00 Temperature 97.7 F Pulse Rate 71 62 66 Respiratory Rate 20 Blood Pressure 154/90 H Pulse Oximetry 94 L 03/18/18 02:00 03/18/18 03:00 03/18/18 04:00 Temperature 98.8 F Pulse Rate 62 67 67 Respiratory Rate 20 Blood Pressure 157/76 H Pulse Oximetry 94 L 03/18/18 05:00 03/18/18 06:00 03/18/18 07:00 Temperature 98.0 F Pulse Rate 62 71 70 Respiratory Rate 18 Blood Pressure 120/64 Pulse Oximetry 97 03/18/18 08:00 03/18/18 09:00 Temperature Pulse Rate 70 77 Respiratory Rate Blood Pressure Pulse Oximetry Intake & Output 03/17/18 03/18/18 03/18/18 18:59 06:59 18:59 Intake Total 840 / 840 480 / 480 Output Total 900 / 900 Balance 840 / 840 -420 / -420 Weight 140.5 kg Intake: Oral 840 / 840 480 / 480 Output: Urine 900 / 900 Other: # Voids 2 2 Date of Last Bowel Movement 03/17/18 03/17/18 03/17/18 # Bowel Movements 1 Results Procedures completed during hospitalization: None. - Impressions ITS Impressions Lower Extremity Ultrasound 03/16/18 10:14 CONCLUSION: 1. Very large right groin hematoma 2. No active flow is identified into the hematoma which would indicate the presence of a pseudoaneurysm. Discharge Plan - Discharge Disposition Patient Disposition: 01 Discharge Home - Discharge Condition Condition: Good - Discharge Order Discharge Orders: Discharge Order (Routine); Ordered 03/18/18 Ordered By: Ro Johnson Vascular Surgery Clear for Discharge (Routine); Ordered 03/18/18 Ordered By: Carlos Hatch - Discharge Details Anticipated Discharge Date: 03/18/18 - Physicians Team Attending Provider: Ro Johnson Other Providers: Leida Smith MD ; Carlos Hatch MD
== END 2018-03-18 10:22 | disposition home or self-care (01) ==
LOC: NEDA 08:54 → NEPE 08:54 → HCIS 14:07
PROVIDERS: ADMIT Hospitalist; ATTEND Hospitalist